=== PATIENT | female | born 2000 | race Two or more races ===

== ENCOUNTER 2024-02-16 09:30 | Emergency (ER) | payer OTHER ==
[~2024-02-16] VITALS: Ht 162.6 cm; Wt 63.5 kg
[2024-02-16] MEDS ORDERED: TOPROL XL25 M1 (09:42)
[2024-02-16] MEDS ORDERED: GUAIFENESIN/DEXTROMETHORPHAN 10ML BLIST.PACK PO ONE (10:30)
[2024-02-16] MEDS ORDERED: ACETAMINOPHEN 500 MG GEL..CAP PO ONE (10:30)
[2024-02-16] MEDS ORDERED: DEXAMETHASONE SODIUM PHOSPHATE 4 MG/ML VIAL IM ONE (10:30)
[2024-02-16 10:47] LABS: HEMATOCRIT 38.3 % (36.0-45.00); HEMOGLOBIN 12.9 g/dL (12.0-15.00); MEAN CELL VOLUME 89.2 fL (80.00-100.00); MEAN CORPUSCULAR HEMOGLOBIN 30.1 pg (27.00-32.0); MEAN CORPUSCULAR HGB CONC 33.7 g/dl (32.0-36.0); PLATELET COUNT 267 K/uL (150-450); RED CELL DISTRIBUTION WIDTH 12.7 % (11.5-14.5)
[2024-02-16] MEDS ORDERED: TUSNEL LIQUID178 ML PO (11:44)
[2024-02-16] MEDS ORDERED: ZYRTEC10 MG PO (11:44)
[2024-02-16] MEDS ORDERED: ZITHROMAX500 MG PO (11:44)
== END 2024-02-16 11:51 | disposition home or self-care (01) ==
LOC: ER 09:31
PROVIDERS: General Practice
DX: J06.9 Acute upper respiratory infection, unspecified (principal); Z20.822 Contact with and (suspected) exposure to COVID-19; I10 Essential (primary) hypertension; Z88.6 Allergy status to analgesic agent

== ENCOUNTER 2024-07-04 15:50 | Emergency (ER) | payer OTHER ==
[~2024-07-04] VITALS: Ht 167.6 cm; Wt 72.6 kg
[~2024-07-04 15:50] MED LIST: TOPROL XL25 M1; TUSNEL LIQUID178 ML PO; ZITHROMAX500 MG PO; ZYRTEC10 MG PO
[2024-07-04 16:02] VITALS: BP 129/78; O2SAT 99
== END 2024-07-04 20:11 | disposition home or self-care (01) ==
LOC: ER 15:52
DX: R53.83 Other fatigue (principal); M54.50 Low back pain, unspecified; Z88.6 Allergy status to analgesic agent

== ENCOUNTER 2024-09-13 11:05 | Emergency (ER) | payer OTHER ==
[~2024-09-13] VITALS: Ht 162.6 cm; Wt 78.5 kg
[2024-09-13] MEDS ORDERED: ACETAMINOPHEN 500 MG GEL..CAP PO ONE ×3 (12:00→12:05)
[2024-09-13 14:10] LABS: URINE APPEARANCE Cloudy; URINE BILIRRUBIN Negative (NEGATIVE); URINE BLOOD Trace; URINE COLOR Yellow; URINE KETONE Negative (NEGATIVE); URINE LEUKOCYTE Large; URINE NITRATE Negative; URINE PROTEIN Negative (NEGATIVE); URINE UROBILINOGEN 0.2 E.U./dl
[2024-09-13 14:14] LABS: URINE EPITHELIAL CELLS 56.6 uL (0.0-38.8); URINE WBC 995.4 uL (0.0-23.2)
[2024-09-13 14:37] LABS: URINE CAST 0.29 uL (0.0-1.40); URINE GLUCOSE >=1000 MG/DL (NEGATIVE); URINE RBC 1.6 uL (0.0-20.8); URINE YEAST MODERATE /hpf
[2024-09-13] MEDS ORDERED: CIPROFLOXACIN IN 5 % DEXTROSE 400 MG/200 ML PIGGYBAG IV ONE ×2 (15:00→15:11)
== END 2024-09-13 18:05 | disposition home or self-care (01) ==
LOC: ER 11:06
PROVIDERS: General Practice
DX: R10.2 Pelvic and perineal pain (principal); Z88.6 Allergy status to analgesic agent; I10 Essential (primary) hypertension
CPT/HCPCS: 36415; 76830; 96365; 99284; J0744

== ENCOUNTER 2024-12-05 02:24 | Emergency (ER) | payer OTHER ==
[~2024-12-05] VITALS: Ht 162.6 cm; Wt 72.6 kg
[2024-12-05] MEDS ORDERED: ACETAMINOPHEN 500 MG GEL..CAP PO STA (04:51)
[2024-12-05] MEDS ORDERED: GUAIFENESIN 200 MG/10 ML BLIST.PACK PO STA (04:52)
[2024-12-05] MEDS ORDERED: ACETAMINOPHEN 500 MG GEL..CAP PO ONE (04:55)
[2024-12-05] MEDS ORDERED: GUAIFENESIN 200 MG/10 ML BLIST.PACK PO ONE (04:55)
[2024-12-05 05:54] LABS: COVID-19 AG NEGATIVE (NEGATIVE)
[2024-12-05 06:49] LABS: BASO % 0.3 % (0.1-1.2); EOS # 0.13 (0.04-0.54); EOS % 1.6 % (0.7-7.0); LYMPH # 3.45 (1.18-3.74); LYMPH % 43.5 % (19.3-53.1); MEAN PLATELET VOLUME 10.80 fl (9.4-12.4); MONO # 0.67 (0.24-0.82); MONO % 8.4 % (4.7-12.5); NEUT # 3.65 (1.56-6.13); NEUT % 45.9 % (34.0-71.1); RED CELL DISTRIBUTION WIDTH 11.7 % (11.6-14.4)
[2024-12-05 07:08] LABS: URINE APPEARANCE Clear; URINE BILIRRUBIN Negative (NEGATIVE); URINE BLOOD Negative; URINE COLOR Yellow; URINE GLUCOSE Negative (NEGATIVE); URINE KETONE Trace (NEGATIVE); URINE LEUKOCYTE Moderate; URINE NITRATE Negative; URINE PROTEIN Negative (NEGATIVE); URINE UROBILINOGEN 0.2 E.U./dl
[2024-12-05 07:10] LABS: URINE BACTERIA 6256.6 uL (0.0-1933); URINE EPITHELIAL CELLS 199.3 uL (0.0-38.8); URINE WBC 169.6 uL (0.0-23.2)
[2024-12-05 07:38] LABS: URINE CAST 0.73 uL (0.0-1.40); URINE RBC 1.4 uL (0.0-20.8)
[2024-12-05 07:41] LABS: URINE CRYSTALS FEW /HPF
[2024-12-05] MEDS ORDERED: CEPHALEXIN500 MG PO (07:51)
== END 2024-12-05 08:12 ==
LOC: ER 02:24
PROVIDERS: General Practice
DX: R05.8 Other specified cough (principal); Z88.6 Allergy status to analgesic agent; Z91.013 Allergy to seafood; Z91.018 Allergy to other foods; N39.0 Urinary tract infection, site not specified; Z20.822 Contact with and (suspected) exposure to COVID-19

== ENCOUNTER 2025-02-17 22:26 | Emergency (ER) | payer OTHER ==
[~2025-02-17] VITALS: Ht 162.6 cm; Wt 78.0 kg
[~2025-02-17 22:26] MED LIST changes: +CEPHALEXIN500 MG PO
[2025-02-18 00:37] LABS: BASO % 0.3 % (0.1-1.2); EOS # 0.14 (0.04-0.54); EOS % 1.3 % (0.7-7.0); LYMPH # 4.34 (1.18-3.74); LYMPH % 40.8 % (19.3-53.1); MEAN PLATELET VOLUME 10.00 fl (9.4-12.4); MONO # 0.91 (0.24-0.82); MONO % 8.5 % (4.7-12.5); NEUT # 5.22 (1.56-6.13); NEUT % 49.0 % (34.0-71.1); RED CELL DISTRIBUTION WIDTH 11.6 % (11.6-14.4)
[2025-02-18 00:45] LABS: URINE APPEARANCE Clear; URINE BILIRRUBIN Negative (NEGATIVE); URINE BLOOD Negative; URINE COLOR Yellow; URINE KETONE Trace (NEGATIVE); URINE LEUKOCYTE Negative; URINE NITRATE Negative; URINE PROTEIN Negative (NEGATIVE); URINE UROBILINOGEN 0.2 E.U./dl
[2025-02-18 00:51] LABS: URINE BACTERIA 281.9 uL (0.0-1933); URINE EPITHELIAL CELLS 9.8 uL (0.0-38.8); URINE RBC 19.6 uL (0.0-20.8); URINE WBC 6.4 uL (0.0-23.2)
[2025-02-18 01:06] LABS: URINE CAST 0.00 uL (0.0-1.40); URINE GLUCOSE >=1000 MG/DL (NEGATIVE)
[2025-02-18 01:07] LABS: COVID-19 AG NEGATIVE (NEGATIVE)
[2025-02-18 01:16] LABS: EOSINOPHIL MAN 2.0 %; LYMPHOCYTE MAN 38.0 %; MONOCYTE MAN 11.0 %; NEUTROPHILS MAN 47.0 %
[2025-02-18] MEDS ORDERED: ACETAMINOPHEN500 M1 PO (04:20)
== END 2025-02-18 04:23 | disposition home or self-care (01) ==
LOC: ER 22:27
PROVIDERS: Preventive Medicine Public Health & General Preventive Medicine
DX: B34.9 Viral infection, unspecified (principal); R10.20 Pelvic and perineal pain unspecified side; Z20.822 Contact with and (suspected) exposure to COVID-19; I10 Essential (primary) hypertension; Z88.6 Allergy status to analgesic agent; Z91.013 Allergy to seafood; Z91.018 Allergy to other foods

== ENCOUNTER 2025-02-24 21:20 | Inpatient (IN) | payer OTHER ==
[~2025-02-24] VITALS: Ht 162.6 cm; Wt 77.1 kg
[~2025-02-24 21:20] MED LIST changes: +ACETAMINOPHEN500 M1 PO
[2025-02-24] MEDS ORDERED: METFORMIN HCL1000 M2 PO (22:18)
[2025-02-24] MEDS ORDERED: ONDANSETRON HCL 2 MG/ML VIAL IV ONE (22:30)
[2025-02-24] MEDS ORDERED: HYOSCYAMINE SULFATE 0.125 MG TAB.SUBL SL ONE (22:30)
[2025-02-24] MEDS ORDERED: FAMOtidine 10 MG/ML (4ML VIAL) IV PUSH ONE (22:30)
[2025-02-24] MEDS ORDERED: HYOSCYAMINE SULFATE 0.125 MG TAB.SUBL ONE (23:16)
[2025-02-24] MEDS ORDERED: FAMOTIDINE/PF 20 MG/2 ML VIAL ONE (23:16)
[2025-02-24] MEDS ORDERED: ONDANSETRON HCL 2 MG/ML VIAL ONE (23:16)
[2025-02-25 00:05] LABS: BASO % 0.2 % (0.1-1.2); EOS # 0.10 (0.04-0.54); EOS % 1.1 % (0.7-7.0); LYMPH # 3.15 (1.18-3.74); LYMPH % 34.2 % (19.3-53.1); MEAN PLATELET VOLUME 10.40 fl (9.4-12.4); MONO # 0.72 (0.24-0.82); MONO % 7.8 % (4.7-12.5); NEUT # 5.20 (1.56-6.13); NEUT % 56.5 % (34.0-71.1); RED CELL DISTRIBUTION WIDTH 11.4 % (11.6-14.4)
[2025-02-25 00:31] LABS: ALT/SGPT 145 U/L (12-78); AST/SGOT 118 U/L (15-37); BILIRUBIN TOTAL 1.63 mg/dL (0.3-1.2); BILIRUBIN,CONJUGATED 0.51 mg/dL (0.0-0.2); BUN CREA RATIO 14 (7.0-25.0); CREATININE SERUM 0.77 mg/dL (0.55-1.02); GFR 92.90; GLOBULINA 3.6 G/DL (2.4-3.5); GLUCOSE FASTING 117 mg/dL (65-100); OSMOLALITY SERUM 282 MOSM/KG (275-295)
[2025-02-25] MEDS ORDERED: MORPHINE SULFATE 4 MG/ML CARTRIDGE IV ONE (00:45)
[2025-02-25 01:00] LABS: HCG QUANTITATIVE < 1 mUI/mL (1-3)
[2025-02-25] MEDS ORDERED: PIPERACILLIN/TAZOBACTAM SODIUM 3.375 GM VIAL IV SCH (01:38)
[2025-02-25] MEDS ORDERED: MORPHINE SULFATE 4 MG/ML CARTRIDGE IV PRN (01:45)
[2025-02-25] MEDS ORDERED: PIPERACILLIN/TAZOBACTAM SODIUM 3.375 GM VIAL IV ONE ×3 (01:52→12:00)
[2025-02-25] MEDS ORDERED: ONDANSETRON HCL 2 MG/ML VIAL ONE (03:59)
[2025-02-25] MEDS ORDERED: 0.9 % SODIUM CHLORIDE 1,000 ML IV SCH (11:45)
[2025-02-25] MEDS ORDERED: ONDANSETRON HCL 4 MG in 0.9 % SODIUM CHLORIDE 50 ML IV PRN (11:45)
[2025-02-25] MEDS ORDERED: ACETAMINOPHEN 325 MG TABLET PO PRN (11:45)
[2025-02-25] MEDS ORDERED: KETOROLAC TROMETHAMINE 15 MG VIAL IV PRN (11:45)
[2025-02-25] MEDS ORDERED: PIPERACILLIN/TAZOBACTAM SODIUM 3.375 GM in 0.9 % SODIUM CHLORIDE 100 ML IV SCH (12:00)
[2025-02-25] MEDS ORDERED: DEXTROSE 50 % IN WATER 0.5 G/ML DISP.SYRIN IV PRN (12:15)
[2025-02-25] MEDS ORDERED: INSULIN LISPRO 1,000 UNIT/10 ML UNITS SUBCUTANEO PRN (12:15)
[2025-02-25 12:18] VITALS: BP 123/71
[2025-02-25 16:54] VITALS: BP 132/79; O2SAT 100
[2025-02-26 00:47] VITALS: BP 112/69; O2SAT 100
[2025-02-26 08:00] VITALS: BP 116/67
[2025-02-26 16:10] LABS: INR 1.02
[2025-02-26 16:21] VITALS: BP 106/71; O2SAT 99
[2025-02-27 00:47] VITALS: BP 118/74; O2SAT 100
== END 2025-02-27 15:02 | disposition home or self-care (01) | DRG 446 ==
LOC: ER 21:21 → SURH 02-25 11:40
PROVIDERS: General Practice; ADMIT Internal Medicine; ATTEND Internal Medicine
PROC: BW40ZZZ Ultrasonography of Abdomen (ICD-10-PCS; principal; 2025-02-24)
DX: K80.00 Calculus of gallbladder with acute cholecystitis without obstruction (principal)

== ENCOUNTER 2025-04-04 19:55 | Emergency (ER) | payer OTHER ==
[~2025-04-04] VITALS: Ht 162.6 cm; Wt 77.1 kg
[~2025-04-04 19:55] MED LIST changes: +METFORMIN HCL1000 M2 PO
[2025-04-04] MEDS ORDERED: METHYLPREDNISOLONE SOD SUCC 125 MG VIAL IV ONE (20:45)
[2025-04-04] MEDS ORDERED: DIPHENHYDRAMINE HCL 50 MG/ML VIAL 1ML IV ONE (20:45)
[2025-04-04] MEDS ORDERED: DIPHENHYDRAMINE HCL 50 MG/ML VIAL 1ML ONE (21:00)
[2025-04-04] MEDS ORDERED: METHYLPREDNISOLONE SOD SUCC 125 MG VIAL ONE (21:00)
[2025-04-04 21:18] LABS: BASO % 0.4 % (0.1-1.2); EOS # 0.29 (0.04-0.54); EOS % 2.7 % (0.7-7.0); LYMPH # 3.77 (1.18-3.74); LYMPH % 34.8 % (19.3-53.1); MEAN PLATELET VOLUME 10.40 fl (9.4-12.4); MONO # 0.69 (0.24-0.82); MONO % 6.4 % (4.7-12.5); NEUT # 6.01 (1.56-6.13); NEUT % 55.5 % (34.0-71.1); RED CELL DISTRIBUTION WIDTH 11.5 % (11.6-14.4)
[2025-04-04] MEDS ORDERED: ZYRTEC10 MG PO (21:35)
[2025-04-04] MEDS ORDERED: BENADRYL ALLERG25 MG PO (21:35)
== END 2025-04-04 22:51 | disposition home or self-care (01) ==
LOC: ER 19:56
DX: T78.40XA Allergy, unspecified, initial encounter (principal); E11.9 Type 2 diabetes mellitus without complications; Z79.84 Long term (current) use of oral hypoglycemic drugs; Z91.013 Allergy to seafood; Z91.018 Allergy to other foods; I10 Essential (primary) hypertension; F41.8 Other specified anxiety disorders

== ENCOUNTER 2025-04-05 09:35 | Emergency (ER) | payer OTHER ==
[~2025-04-05] VITALS: Ht 162.6 cm; Wt 77.1 kg
[~2025-04-05 09:35] MED LIST changes: +BENADRYL ALLERG25 MG PO
[2025-04-05] MEDS ORDERED: 0.9 % SODIUM CHLORIDE 1,000 ML IV STA (10:50)
[2025-04-05 12:37] LABS: BASO % 0.2 % (0.1-1.2); EOS # 0.00 (0.04-0.54); EOS % 0.0 % (0.7-7.0); LYMPH # 1.98 (1.18-3.74); LYMPH % 9.1 % (19.3-53.1); MEAN PLATELET VOLUME 10.90 fl (9.4-12.4); MONO # 0.43 (0.24-0.82); MONO % 2.0 % (4.7-12.5); NEUT # 19.33 (1.56-6.13); NEUT % 88.3 % (34.0-71.1); RED CELL DISTRIBUTION WIDTH 11.5 % (11.6-14.4)
[2025-04-05 12:53] LABS: ERYTHROCYTE SEDIMENTATION RATE 32 mm/hr (0-20)
[2025-04-05 13:09] LABS: ALT/SGPT 43 U/L (12-78); AST/SGOT 21 U/L (15-37); BILIRUBIN TOTAL 0.84 mg/dL (0.3-1.2); BUN CREA RATIO 19 (7.0-25.0); CREATININE SERUM 0.74 mg/dL (0.55-1.02); GFR 97.25; GLOBULINA 4.3 G/DL (2.4-3.5); GLUCOSE FASTING 185 mg/dL (65-100); OSMOLALITY SERUM 275 MOSM/KG (275-295)
[2025-04-05 13:30] LABS: URINE APPEARANCE Cloudy; URINE BILIRRUBIN Negative (NEGATIVE); URINE BLOOD Trace; URINE COLOR Yellow; URINE KETONE Trace (NEGATIVE); URINE LEUKOCYTE Negative; URINE NITRATE Negative; URINE PROTEIN Trace (NEGATIVE); URINE UROBILINOGEN 0.2 E.U./dl
[2025-04-05 13:34] LABS: URINE EPITHELIAL CELLS 34.4 uL (0.0-38.8); URINE RBC 13.4 uL (0.0-20.8); URINE WBC 15.0 uL (0.0-23.2)
[2025-04-05 13:38] LABS: URINE CAST 1.02 uL (0.0-1.40); URINE GLUCOSE 250 MG/DL (NEGATIVE)
== END 2025-04-05 18:38 | disposition home or self-care (01) ==
LOC: ER 09:36
PROVIDERS: Physician Assistant Medical
DX: R73.9 Hyperglycemia, unspecified (principal); Z91.018 Allergy to other foods; Z91.013 Allergy to seafood; E86.0 Dehydration